=== PATIENT | male | born 1950 | race Caucasian/White ===

== ENCOUNTER 2019-02-08 06:21 | Day surgery (SDC) | payer MEDICARE, BC ==
[2019-02-08] MEDS ORDERED: Lactated Ringers 1,000 ML IV SCH (06:45)
[2019-02-08] MEDS ORDERED: fentaNYL 100 MCG/2 ML SDV ONE (07:55)
[2019-02-08] MEDS ORDERED: Propofol 200 MG/20 ML SDV ONE (07:55)
--- NOTE | 2019-02-08 08:39 | OR ---
PREOPERATIVE DIAGNOSIS: Screening colonoscopy. POSTOPERATIVE DIAGNOSIS: Sigmoid diverticulosis, otherwise normal exam. PROCEDURE PROPOSED: Total flexible colonoscopy. PROCEDURE DONE: Total flexible colonoscopy. INDICATIONS: This is a 68-year-old gentleman who comes in for a 10-year screening colonoscopy. He denies any symptomatology, and he has a negative family history for any colon cancer. TECHNIQUE: The patient was brought to the endoscopy suite and placed in the left lateral decubitus position. He was sedated per [employer] with propofol. The flexible video colonoscope was then passed transanally and under visualization advanced to the cecum. Examination revealed a normal ascending, transverse, descending, sigmoid, and rectal colon. There was no evidence of any polyps, but he did have some sigmoid diverticulosis that was rather mild in nature. No signs of any colitis or other abnormalities. The scope was then withdrawn. The patient tolerated the procedure well. FINAL IMPRESSION: Sigmoid diverticulosis, otherwise normal exam. PLAN: The patient was reassured. I felt he could wait 10 years before he needs a repeat colonoscopy. SCM: 02/08/2019 08:19:15 MODL: 02/08/2019 08:35:25 /[id number]
[2019-02-08 10:19] VITALS: BP 95/71; PULSE 100
== END 2019-02-08 09:10 | disposition home or self-care (01) ==
LOC: VM.SDS 06:21
PROVIDERS: ATTEND Surgery
DX: Z12.11 Encounter for screening for malignant neoplasm of colon (principal); K57.30 Diverticulosis of large intestine without perforation or abscess without bleeding; K21.9 Gastro-esophageal reflux disease without esophagitis; I25.10 Atherosclerotic heart disease of native coronary artery without angina pectoris; I10 Essential (primary) hypertension; E78.00 Pure hypercholesterolemia, unspecified; E78.5 Hyperlipidemia, unspecified; J43.1 Panlobular emphysema; F32.9 Major depressive disorder, single episode, unspecified; N40.1 Benign prostatic hyperplasia with lower urinary tract symptoms; R35.0 Frequency of micturition; R39.12 Poor urinary stream; M10.9 Gout, unspecified; E66.9 Obesity, unspecified; Z68.30 Body mass index [BMI] 30.0-30.9, adult; Z88.8 Allergy status to other drugs, medicaments and biological substances; Z87.891 Personal history of nicotine dependence; Z79.82 Long term (current) use of aspirin; Z79.899 Other long term (current) drug therapy
CPT/HCPCS: 00812; G0121; J2704; J3010; J7120

== ENCOUNTER 2023-02-25 10:51 | Emergency (ER) | payer BC, MEDICARE ==
[2023-02-25 11:02] VITALS: BP 122/76; PULSE 90
[2023-02-25 11:18] LABS: APPEARANCE,URINE CLEAR (CLEAR); BILIRUBIN,URINE NEGATIVE (NEGATIVE); COLOR,URINE YELLOW (YELLOW); GLUCOSE,URINE NEGATIVE (NEGATIVE); KETONES,URINE NEGATIVE (NEGATIVE); LEUKOCYTE ESTERASE,URINE NEGATIVE (NEGATIVE); NITRITE,URINE NEGATIVE (NEGATIVE); OCCULT BLOOD,URINE NEGATIVE (NEGATIVE); PH,URINE 5.5 (5.0-8.0); PROTEIN,URINE NEGATIVE (NEGATIVE); UROBILINOGEN,URINE 0.2 EU/dL (0.2)
[2023-02-25 11:23] LABS: BASOPHILS PERCENT AUTO 0.4 % (0.2-1.2); EOSINOPHILS ABSOLUTE AUTO 0.1 x10^3/uL (0.0-0.5); EOSINOPHILS PERCENT AUTO 1.4 % (0.0-4.0); HEMATOCRIT 40.4 % (40.0-52.0); HEMOGLOBIN 14.4 g/dL (14.0-18.0); IMMATURE GRAN ABSOLUTE AUTO 0.06 x10^3/uL (0.00-0.07); LYMPHOCYTES ABSOLUTE AUTO 1.9 x10^3/uL (1.0-4.8); LYMPHOCYTES PERCENT AUTO 19.1 % (25.0-50.0); MEAN CORPUSCULAR HEMOGLOBIN 32.7 pg (26.0-32.0); MEAN CORPUSCULAR HGB CONC 35.6 g/dL (32.0-36.0); MEAN CORPUSCULAR VOLUME 91.6 fL (78.0-93.0); MONOCYTES ABSOLUTE AUTO 0.8 x10^3/uL (0.0-0.8); MONOCYTES PERCENT AUTO 8.5 % (2.0-11.0); NEUTROPHILS ABSOLUTE AUTO 6.9 x10^3/uL (1.8-7.7); PLATELET COUNT,PLT 207 x10^3/uL (130-400); RED BLOOD CELL COUNT 4.41 x10^6/uL (4.5-6.0); WHITE BLOOD CELL COUNT,WBC 9.9 x10^3/uL (4.0-10.0)
[2023-02-25 11:44] LABS: A/G RATIO 0.92; ALANINE AMINOTRANSFERASE,ALT 31 U/L (16-63); ALBUMIN 3.4 g/dL (3.4-5.0); ALKALINE PHOSPHATASE 64 U/L (46-116); ASPARTATE AMNIOTRANSFERASE,AST 22 U/L (15-37); BILIRUBIN TOTAL 0.7 mg/dL (0.2-1.0); BLOOD UREA NITROGEN,BUN 18 mg/dL (7-18); C-REACTIVE PROTEIN 3.96 mg/dL (<=0.30); CARBON DIOXIDE,CO2 29 mmol/L (21-32); CHLORIDE,CL 102 mmol/L (98-107); CREATININE 1.2 mg/dL (0.70-1.30); GLUCOSE RANDOM 82 mg/dL (70-99); LIPASE 22 U/L (19-71); MAGNESIUM 1.9 mg/dL (1.8-2.4); PROTEIN TOTAL,TP 7.1 g/dL (6.4-8.2); SODIUM,NA 141 mmol/L (136-145)
[2023-02-25 11:45] LABS: ESTIMATED GFR 64 mL/min (>=60)
[2023-02-25 11:49] LABS: CALCIUM 8.7 mg/dL (8.5-10.1)
== END 2023-02-25 12:53 | disposition home or self-care (01) ==
LOC: VM.ED 10:51
DX: K59.00 Constipation, unspecified (principal); I10 Essential (primary) hypertension; E78.00 Pure hypercholesterolemia, unspecified; E66.9 Obesity, unspecified; Z88.1 Allergy status to other antibiotic agents; Z91.09 Other allergy status, other than to drugs and biological substances; Z79.82 Long term (current) use of aspirin; Z79.899 Other long term (current) drug therapy; Z87.891 Personal history of nicotine dependence
CPT/HCPCS: 36415; 74019; 80053; 81003; 83605; 83690; 83735; 85025; 86140; 99284